=== PATIENT | male | born 2000 | race Caucasian/White ===

== ENCOUNTER 2020-03-19 15:21 | Emergency (ER) | payer BC, SELFPAY ==
--- NOTE | 2020-03-19 15:31 | ED.EAR ---
HPI - Ear Problem General Chief complaint: Ear Stated complaint: ear pain Time Seen by Provider: 03/19/20 15:31 Source: patient and RN notes reviewed History of Present Illness HPI Narrative: Patient is a 19-year-old male who presents the urgent care with complaints of 3 to 4-day history of right ear pressure. Patient states that he dove in a pool approximately 3 to 4 days ago and has been hurting ever since then. Patient has been using old prescription eardrops. Denies of any fever, nausea, vomiting, sinus symptoms. No other acute complaints. No acute distress noted. Patient read the plan of care. Related Data Allergies Allergy/AdvReac Type Severity Reaction Status Date / Time No Known Allergies Allergy Verified 09/10/18 07:45 Review of Systems Review of Systems: Narrative: CONSTITUTIONAL: Denies fever, chills, or sweats. EYES: Denies visual changes, redness, or discharge. ENT: Reports of right ear pressure CARDIOVASCULAR: Denies chest pain, palpitations, or edema. RESPIRATORY: Denies cough or dyspnea. GASTROINTESTINAL: Denies abdominal pain, nausea, vomiting, or diarrhea. GENITOURINARY: Denies dysuria or hematuria. SKIN: Denies rash or itching. MUSCULOSKELETAL: Denies back pain, joint pain, or myalgia. NEUROLOGIC: Denies headache, numbness, or weakness. All other systems reviewed are negative, except as documented in HPI. [facility] Family History Family History (Updated 01/01/18 @ 08:44 by DOCTOR UNKNOWN) Grandparent Diabetes mellitus Family history of malignant neoplasm Family history of genitourinary disease Family history of arthritis Mother Family history of elevated blood lipids Father Family history of osteoporosis Family history of elevated blood lipids Social History Social History Smoking status: Never smoker Alcohol intake: never Comments At the time of my signature, I reviewed and agree with the nursing past medical, surgical, social, and family history. There is no relevant family history pertinent to the patient complaint. Exam Narrative: Exam Narrative: GENERAL: This is a well-nourished, well-developed patient, in no apparent distress. HEAD: normocephalic, atraumatic. EYES: PERRL. Sclera clear/white. Vision is grossly intact. EARS: External ears normal, left auditory canal clear and without drainage, right auditory canal mildly edematous with moderate erythema and without drainage, right TM moderately injected and mildly erythemic, left TM normal without perforation. Hearing grossly intact. NOSE: External nose normal with no obvious nasal discharge, nares without redness, no rhinorrhea. THROAT: Mucous membranes moist NECK: Neck supple SKIN: warm, intact with no suspicious lesions or rash, good texture and turgor. NEURO: awake, alert, and oriented to person, place and time. There were no obvious focal neurologic abnormalities. EXTREMITIES: No clubbing, cyanosis, or edema. Course Vital Signs Vital signs: Vital Signs Temperature 98.8 F 03/19/20 15:37 Pulse Rate 80 03/19/20 15:37 Respiratory Rate 16 03/19/20 15:37 Blood Pressure 127/80 03/19/20 15:37 Pulse Oximetry 99 03/19/20 15:37 Temperature 98.8 F 03/19/20 15:37 Pulse Rate 80 03/19/20 15:37 Respiratory Rate 16 03/19/20 15:37 Blood Pressure 127/80 03/19/20 15:37 Pulse Oximetry 99 03/19/20 15:37 Reviewed Medical Decision Making MDM Narrative Medical decision making narrative: Advised the patient to complete oral antibiotic regimen as prescribed. Make sure to eat and drink with medication. Use drops to the right ear for 5 days, as directed. May use warm compress to the ear as needed for comfort. Do not put anything in the ear such as Q-tips, peroxide, water. Use Tylenol/ibuprofen as needed for pain. Follow-up with your PCP within 2 to 5 days if her worsening symptoms or failure to improve. Differential Diagnosis Differential Diagnosis: Pneumonia, Allergic Rhinitis, Upper respiratory cough
[2020-03-19 15:37] VITALS: BP 127/80; PULSE 80; RESP 16; TEMP 37.1; O2SAT 99
== END 2020-03-19 15:58 | disposition home or self-care (01) ==
PROVIDERS: Emergency Provider Nurse Practitioner Family
DX: H60.91 Unspecified otitis externa, right ear (principal); H66.91 Otitis media, unspecified, right ear
CPT/HCPCS: 99213; G0463

== ENCOUNTER 2020-09-28 13:25 | Outpatient (NON) | payer BC, SELFPAY ==
[2020-10-03 23:29] LABS: SARS-CoV-2 RNA PCR Negative
== END 2020-09-28 13:26 ==
PROVIDERS: PCP Family Medicine; Visit Provider Physician Assistant Medical
DX: Z20.828 Contact with and (suspected) exposure to other viral communicable diseases (principal)
CPT/HCPCS: C9803; U0003

== ENCOUNTER → 2021-02-24 06:38 | Outpatient (CLI) | payer BC, SELFPAY ==
[2021-02-26 17:04] LABS: SARS-CoV-2 RNA PCR Negative
== END ==
PROVIDERS: PCP Family Medicine; Visit Provider Family Medicine
DX: R68.89 Other general symptoms and signs (principal); Z20.822 Contact with and (suspected) exposure to COVID-19
CPT/HCPCS: C9803; U0003; U0005

== ENCOUNTER → 2021-10-06 01:21 | Outpatient (CLI) | payer BC, SELFPAY ==
[2021-10-06 22:40] LABS: SARS-CoV-2 RNA PCR Negative
== END ==
PROVIDERS: PCP Family Medicine; Visit Provider Physician Assistant
DX: R68.89 Other general symptoms and signs (principal); Z20.822 Contact with and (suspected) exposure to COVID-19
CPT/HCPCS: C9803; U0003; U0005

== ENCOUNTER 2024-08-11 11:26 | Outpatient (CLI) | payer BC, SELFPAY ==
[2024-08-11 13:40] LABS: Hematocrit 47.8 % (42.0-52.0); Hemoglobin 16.6 g/dL (14.0-18.0); Mean Corpuscular HGB Conc 34.7 g/dl (32-36); Mean Corpuscular Hemoglobin 31.5 pg (26-34); Mean Corpuscular Volume 90.7 fl (80-100); Platelet Count Result 294 k/mm3 (150-375); Red Blood Count 5.27 M/mm3 (4.6-6.20); Red Cell Distribution Width 12.3 % (11.5-14.5); White Blood Count 7.3 K/mm3 (4.5-10.0)
[2024-08-11 13:43] LABS: Alanine Aminotransferase 55 U/L (6-50); Albumin Level 4.3 g/dL (3.5-5.1); Alkaline Phosphatase 60 U/L (38-126); Anion Gap 5 mmol/L (4-12); Aspartate Amino Transferase 67 U/L (17-59); Bilirubin,Total 1.1 mg/dL (0.2-1.3); Blood Urea Nitrogen 19 mg/dL (9-20); Calcium 9.5 mg/dL (8.4-10.2); Carbon Dioxide 30 mmol/L (22-30); Chloride 103 mmol/L (98-107); Cholesterol 144 mg/dL (0-200); Estimated Glomerular Filt Rate > 60; Glucose 91 mg/dL (65-110); HDL Direct 54 mg/dL; Potassium 4.4 mmol/L (3.4-5.0); Sodium 138 mmol/L (137-145); Triglycerides 137 mg/dL (<150)
[2024-08-11 14:02] LABS: LDL Cholesterol Direct 43 mg/dL
== END 2024-08-11 11:27 | disposition home or self-care (01) ==
LOC: ANHGOSHLAB 11:28
PROVIDERS: PCP Family Medicine; Visit Provider Nurse Practitioner
DX: Z00.00 Encounter for general adult medical examination without abnormal findings (principal)
CPT/HCPCS: 36415; 80053; 80061; 84443; 85027

== ENCOUNTER 2024-10-11 10:53 | Outpatient (CLI) | payer BC, SELFPAY ==
--- NOTE | 2024-10-11 11:07 | EST_ITS ---
Patient Info Name: Sung Rubi Age: 24 years : 2000 Gender: Male Ht: 70 in Wt: 294 lbs BSA: 2.63 m2 HR: 72 bpm BP: 122 / 75 mmHg Exam Date: 10/11/2024 11:31 AM Exam Location: Echo Lab Patient Status: Outpatient Admit Date: 10/11/2024 Staff Ordering Physician: Melissa Barton Attending Provider: Melissa Barton Exercise Technologist: Jacinda Raymundo [facility] Exercise Physician: Sajan Ballard DO Exam Type: CA stress test treadmill Study Info A treadmill exercise stress test was performed. Summary 1. 1. Negative Stewart exercise stress test for ischemic ST changes by ECG criteria. 2. 2. Good functional capacity, achieving 12 METs of workload. 3. 3. Appropriate HR response to exercise. 4. 4. Appropriate HR recovery at 1 minute post exercise. 5. 5. No imaging with stress testing. 6. 6. Patient informed of the above results. Protocol: Stewart Stress ECG Details Stage: REST Duration (min): 3 min : 49 sec Speed (mph): 0.0 Grade (%): 0 HR (bpm): 69 SBP (mmHg): 122 DBP (mmHg): 75 METS: --- Stage: REST Duration (min): 6 min : 34 sec Speed (mph): 0.0 Grade (%): 0 HR (bpm): 73 SBP (mmHg): 122 DBP (mmHg): 75 METS: --- Stage: STAGE 1 Duration (min): 1 min : 0 sec Speed (mph): 1.7 Grade (%): 10 HR (bpm): 99 SBP (mmHg): 122 DBP (mmHg): 75 METS: --- Stage: STAGE 1 Duration (min): 2 min : 0 sec Speed (mph): 1.7 Grade (%): 10 HR (bpm): 101 SBP (mmHg): 122 DBP (mmHg): 75 METS: --- Stage: STAGE 1 Duration (min): 3 min : 0 sec Speed (mph): 1.7 Grade (%): 10 HR (bpm): 105 SBP (mmHg): 144 DBP (mmHg): 67 METS: --- Stage: STAGE 2 Duration (min): 1 min : 0 sec Speed (mph): 2.5 Grade (%): 12 HR (bpm): 118 SBP (mmHg): 144 DBP (mmHg): 67 METS: --- Stage: STAGE 2 Duration (min): 2 min : 0 sec Speed (mph): 2.5 Grade (%): 12 HR (bpm): 123 SBP (mmHg): 153 DBP (mmHg): 72 METS: --- Stage: STAGE 2 Duration (min): 3 min : 0 sec Speed (mph): 2.5 Grade (%): 12 HR (bpm): 122 SBP (mmHg): 153 DBP (mmHg): 72 METS: --- Stage: STAGE 3 Duration (min): 1 min : 0 sec Speed (mph): 3.4 Grade (%): 14 HR (bpm): 137 SBP (mmHg): 164 DBP (mmHg): 58 METS: --- Stage: STAGE 3 Duration (min): 2 min : 0 sec Speed (mph): 3.4 Grade (%): 14 HR (bpm): 150 SBP (mmHg): 164 DBP (mmHg): 58 METS: --- Stage: STAGE 3 Duration (min): 3 min : 0 sec Speed (mph): 3.4 Grade (%): 14 HR (bpm): 159 SBP (mmHg): 169 DBP (mmHg): 47 METS: --- Stage: STAGE 4 Duration (min): 0 min : 31 sec Speed (mph): 4.2 Grade (%): 16 HR (bpm): 168 SBP (mmHg): 169 DBP (mmHg): 47 METS: --- Stage: RECOVERY Duration (min): 0 min : 28 sec Speed (mph): 0.0 Grade (%): 0 HR (bpm): 159 SBP (mmHg): 169 DBP (mmHg): 47 METS: --- Stage: RECOVERY Duration (min): 1 min : 28 sec Speed (mph): 0.0 Grade (%): 0 HR (bpm): 127 SBP (mmHg): 169 DBP (mmHg): 47 METS: --- Stage: RECOVERY Duration (min): 2 min : 28 sec Speed (mph): 0.0 Grade (%): 0 HR (bpm): 105 SBP (mmHg): 162 DBP (mmHg): 65 METS: --- Stage: RECOVERY Duration (min): 3 min : 4 sec Speed (mph): 0.0 Grade (%): 0 HR (bpm): 106 SBP (mmHg): 153 DBP (mmHg): 65 METS: --- Rest HR: 73 bpm Peak HR: 170 bpm Rest Sys BP: 122 mmHg Peak Sys BP: 169 mmHg Max Pred HR: 196 bpm % Max Pred HR: 87 % Target HR: 167 bpm Max RPP: 28,730 bpm*mmHg Killian Score: -5 Termination Reason: Reached target heart rate or workload Cardiac Symptoms: Shortness of breath Max ST Seg Deviation: 2.90 mm Total Time: 9 min : 31 sec Rest Wilson BP: 75 mmHg Peak Wilson BP: 47 mmHg Angina Score: None Total METS: 11.2 Resting ECG Sinus rhythm. Stress ECG No ST changes. Arrhythmias None. Report Signatures
== END 2024-10-11 10:54 | disposition home or self-care (01) ==
PROVIDERS: Visit Provider Nurse Practitioner
DX: R07.9 Chest pain, unspecified (principal)
CPT/HCPCS: 93017

== ENCOUNTER 2025-02-28 15:08 | Outpatient (CLI) | payer BC, SELFPAY ==
--- NOTE | ~2025-02-28 | XR_ITS ---
Supine and upright views of the abdomen Clinical history: Renal stone COMPARISON: 09/25/2018 Findings: Bowel gas pattern is nonspecific. No evidence for obstruction or free air. Right ureteral s tent in place. No abnormal mass lesion or calcification is seen. Osseous structures are intact. Impression: Right ureteral stent. No stones visible radiographically. Reviewed, dictated and finalized at [facility]. Impression: Right ureteral stent. No stones visible radiographically.
== END 2025-02-28 15:09 | disposition home or self-care (01) ==
LOC: GOSHIMG 15:09
PROVIDERS: Visit Provider Family Medicine
DX: R30.0 Dysuria (principal); Z87.442 Personal history of urinary calculi; R31.9 Hematuria, unspecified; R10.32 Left lower quadrant pain
CPT/HCPCS: 74018

== ENCOUNTER 2025-03-25 13:22 | Outpatient (CLI) | payer BC, SELFPAY ==
--- NOTE | ~2025-03-25 | US_ITS ---
Renal-Bladder ultrasound Clinical History: Renal calculi Technique: Real-time sonographic imaging of the kidneys and urinary bladder was performed. Findings: The right kidney measures 11.3 cm in length and the left kidney measures 13.1 cm. There is no hydronephrosis or renal calculus identified. Renal cortical echogenicity is within normal limits. No renal mass lesion is identified. The urinary bladder is moderately distended at the time of this exam. No intraluminal echoes are iden tified. No abnormal wall thickening is seen. Impression: Unremarkable ultrasound of the kidneys and urinary bladder. Reviewed, dictated and finalized at location M. Impression: Unremarkable ultrasound of the kidneys and urinary bladder.
--- NOTE | ~2025-03-25 | XR_ITS ---
EXAM/PROCEDURE: XR abdomen/kub 1V - 03/25/2025 13:58 CDT HISTORY: 24 years old Male with Z87.442 - Personal history of urinary calculi COMPARISON: None available. TECHNIQUE: AP view(s) of the abdomen. FINDINGS: The bowel gas pattern is normal. There is no evidence for obstruction. Mild stool burden. No free intraperitoneal air is identified on this supine radiograph. The visualized soft tissue shadows are unremarkable. No gross bony abnormalities are seen. Visualized portions of lung bases are clear. IMPRESSION: Mild stool burden. Reviewed, dictated and finalized at location A. IMPRESSION: Mild stool burden.
== END 2025-03-25 13:23 | disposition home or self-care (01) ==
LOC: GOSHIMG 13:23
PROVIDERS: Visit Provider Family Medicine
DX: R30.0 Dysuria (principal); R10.9 Unspecified abdominal pain; Z98.890 Other specified postprocedural states; Z87.442 Personal history of urinary calculi
CPT/HCPCS: 74018; 76775